=== PATIENT | female | born 1965 | race Native Hawaiian/Other Pacific Islander ===

== ENCOUNTER 2021-06-19 12:44 | Observation (INO) | payer OTHER ==
[~2021-06-19] VITALS: Ht 167.6 cm; Wt 51.4 kg
[2021-06-19] VITALS (15 sets, daily range): BP systolic 96–152; BP diastolic 40–71; TEMP 97.8
[2021-06-19 13:57] LABS: PLATELET COUNT 163 K/uL (152-353)
[2021-06-19 14:14] LABS: POTASSIUM 3.7 mmol/L (3.6-5.2); SODIUM 133 mmol/L (136-145)
[2021-06-19 14:21] LABS: PARTIAL THROMBOPLASTIN TIME 30.8 SECONDS (24.5-33.6)
[2021-06-20] VITALS (8 sets, daily range): BP systolic 121–151; BP diastolic 48–93; TEMP 97.7–98.7; Ht 167.6 cm; Wt 51.4 kg
--- NOTE | 2021-06-20 01:30 | NUR ---
PT ARRIVED VIA WHEELCHAIR FROM THE EMERGENCY DEPARTMENT AT THIS TIME DIAGNOSED WITH COVID PNEUMONIA / PERSISTENT VOMITING / AND RESPIRATORY DISTRESS ON ROOM AIR SATTING 94% AT THIS TIME IN 1117. NO S/S OF ACUTE DISTRESS NOTED OR EXPRESSED TO SMALL OFFSET PRINTER AT THIS TIME. PT IN A HIGH-FOWLERS POSITION WITH SIDE RAILS UP TIMES TWO WITH BED IN LOWEST POSITION WITH CALL LIGHT WITHIN REACH. NS 20KCL INFUSING AT 125 AT THIS TIME
[2021-06-20] MEDS ORDERED: GNP MELATONIN MA5 MG PO (02:09)
[2021-06-20] MEDS ORDERED: D32000 UNIT PO (02:16)
[2021-06-20] MEDS ORDERED: ZINC50 MG PO (02:18)
[2021-06-20] MEDS ORDERED: VITAMIN C 500 M1 TAB PO (02:21)
[2021-06-20] MEDS ORDERED: THIA100T8 PO (02:22)
--- NOTE | 2021-06-20 05:15 | NUR ---
22 G TO THE RIGHT HAND INITIATED AT THIS TIME. NO EDEMA or ERRYTHEMA NOTED AT THIS TIME. SITE IS PATENT AND WORKING.
[2021-06-20 05:20] LABS: PLATELET COUNT 168 K/uL (152-353)
[2021-06-20 05:32] LABS: POTASSIUM 3.8 mmol/L (3.6-5.2)
--- NOTE | 2021-06-20 12:39 | NUR ---
IS INITIATED AT THIS TIME. PT PULLED APPROX 750 ON IS. ENCOURAGED PT TO COMPLETE EVERY FEW HOURS IN BETWEEN RT VISITS.
--- NOTE | 2021-06-20 17:02 | NUR ---
Patient's shazia called and spoke with this nurse about patient's condition. She was given an update.
[2021-06-21] VITALS: BP 141/66; TEMP 97.7
[2021-06-21 04:00] VITALS: BP 143/62; TEMP 97.4
[2021-06-21 07:48] LABS: PLATELET COUNT 255 K/uL (152-353)
[2021-06-21 08:00] VITALS: BP 136/60; TEMP 97.6
[2021-06-21 08:12] LABS: POTASSIUM 4.6 mmol/L (3.6-5.2)
[2021-06-21 12:00] VITALS: BP 117/66; TEMP 97.7
--- NOTE | 2021-06-21 12:59 | NUR ---
PT SUPINE IN BED. PT SPEAKS VERY LITTLE MALAY. PT C/O NAUSEA, ADMINISTERED MED ORDERED. PT DENIES ANY CURRENT NAUSEA. PT HAS IV SITE X2, IV SITE TO RIGHT HAND AND LEFT FA, INTACT WITH NO SWELLING OR REDNESS NOTED TO SITE. PT CONTINUES TO BE ON ROOM AIR AND SATS=93%. PT HAS POOR APPETITE R/T DISEASE PROCESS. NO NAD NOTED. PT ALERT AND ORIENTED.
[2021-06-21 16:00] VITALS: BP 140/62; TEMP 98.1
--- NOTE | 2021-06-21 19:47 | NUR ---
PT IN HIGH FOWLERS POSITON WATCHING TV. DENIES ANY PAIN/DISCOMFORT OR NAUSEA AT PRESENT TIME. CONTINUES TO BE ON ROOM AIR WITH SATS IN 90s. IVF INFUSING ORDERED. IV SITE INTACT WITH NO REDNESS OR SWELLING NOTED. PT SPEAKS VERY LITTLE [place] BUT CAN UNDERSTAND SIMPLE INSTRUCTIONS GIVEN IN [place]. NO NAD NOTED.
[2021-06-21 20:00] VITALS: BP 126/56; TEMP 98.4
[2021-06-22] VITALS: BP 120/53; TEMP 97.5
[2021-06-22 04:00] VITALS: BP 130/68; TEMP 98.2
[2021-06-22 05:57] LABS: PLATELET COUNT 258 K/uL (152-353)
[2021-06-22 06:16] LABS: POTASSIUM 4.1 mmol/L (3.6-5.2)
[2021-06-22 08:00] VITALS: BP 154/71; TEMP 97.9
[2021-06-22] MEDS ORDERED: PULMICORT180 MCG/AC INH (11:14)
[2021-06-22] MEDS ORDERED: ASCO500T18 PO (11:14)
[2021-06-22] MEDS ORDERED: HYDR-3182 PO (11:15)
[2021-06-22] MEDS ORDERED: IPRAAER INH (11:15)
--- NOTE | 2021-06-22 11:46 | NUR ---
PT IN HIGH FOWLERS POSITION IN BED. PT C/O NAUSEA, ADMINISTERED ZOFRAN ORDERED. CONTINUES TO BE ON ROOM AIR AND SATS AT 95-96%. NO NAD NOTED. DENIES ANY PAIN/DISCOMFORT. PT ALERT AND OREINTED. PTS IV SITES TO RIGHT HAND AND LEFT FA INTACT AND FLUSHES WITH NO DIFFICULTY, NO SWELLING OR REDNESS NOTED.
--- NOTE | 2021-06-22 13:18 | NUR ---
PT TRANSPORTED OUT OF FACILITY VIA WHEELCHAIR AT 1300, LUCIO, SON AWAITING TO PICK PT UP. PRESCRIPTIONS AND DISCHARGE PAPER WORK GIVEN TO SON.
--- NOTE | 2021-06-23 10:57 | NUR ---
PT DISCHARGED TO GO HOME ON 06/22/21. DISCHARGE INSTRUCTIONS GIVEN TO PT AND SONLUCIO ALONG WITH PRESCRIPTION. BOTH VERBALIZED UNDERSTANDING. IV SITE D/C'D AND NO SWELLING OR REDNESS NOTED AT SITE. PT TRANSPORTED OUT OF FACILITY BY WHEELCHAIR AND SONLUCIO AWAITING TO PICK PT UP.
== END 2021-06-22 13:00 | disposition home or self-care (01) ==
LOC: ED 12:44 → MED/SURG 17:25
PROVIDERS: Family Medicine; ADMIT Internal Medicine Endocrinology, Diabetes & Metabolism; ATTEND Internal Medicine Endocrinology, Diabetes & Metabolism
DX: U07.1 COVID-19 (principal); J12.82 Pneumonia due to coronavirus disease 2019; R09.02 Hypoxemia; D50.8 Other iron deficiency anemias; R50.9 Fever, unspecified; R53.1 Weakness; R06.02 Shortness of breath; R05 Cough
CPT/HCPCS: 36415; 36600; 80053; 82550; 82805; 84484; 85008; 85027; 85610; 85730; 87635; 93005; 94760; 96360; 96365; 96375; 99220; 99284; G0378; J0456; J0696; J1100; J1650; J1885; J2270; J2405; J3480; U0003